=== PATIENT | female | born 1960 | race Caucasian/White ===

== ENCOUNTER 2016-06-16 10:19 | Outpatient (CLI) | payer MEDICAID | END 2016-06-16 10:20 | disposition home or self-care (01) | DX: M50.23 Other cervical disc displacement, cervicothoracic region (principal); M67.28 Synovial hypertrophy, not elsewhere classified, other site; M47.892 Other spondylosis, cervical region ==

== ENCOUNTER → 2016-12-02 | Outpatient (CLI) | payer MEDICAID | LOC: LAB.F 08:00 | PROVIDERS: ATTEND Nurse Practitioner Family | DX: R60.0 Localized edema (principal) | CPT/HCPCS: 36415; 83880; 85379 ==

== ENCOUNTER 2017-06-16 15:01 | Outpatient (CLI) | payer MEDICAID ==
[2017-06-16 17:49] LABS: ALBUMIN 4.2 g/dL (3.2-5.5); ALBUMIN/GLOBULIN RATIO 1.6 (1.0-2.2); ALKALINE PHOSPHATASE 83 IU/L (42-121); ALT ALANINE AMINOTRANSFERASE 32 IU/L (10-60); AST ASPARTATE AMINOTRANSFERASE 23 IU/L (10-42); BILIRUBIN,TOTAL 0.5 mg/dL (0.2-1.0); BUN - BLOOD UREA NITROGEN 25 mg/dL (6-20); CALCIUM 9.2 mg/dL (8.5-10.3); CARBON DIOXIDE - CO2 26 mmol/L (21-32); CHLORIDE 102 mmol/L (101-111); GFR - MDRD 57 (>89); GLUCOSE 107 mg/dL (70-100); SODIUM 137 mmol/L (135-145); TOTAL PROTEIN 6.9 g/dL (6.7-8.2)
== END 2017-06-16 15:02 | disposition home or self-care (01) ==
LOC: LAB.F 15:01
PROVIDERS: ATTEND Nurse Practitioner Family
DX: I10 Essential (primary) hypertension (principal); E03.9 Hypothyroidism, unspecified
CPT/HCPCS: 36415; 80053; 84443